=== PATIENT | male | born 1965 | race Caucasian/White ===

== ENCOUNTER 2020-10-19 02:33 | Emergency (ER) | payer BC, MEDICAID ==
[~2020-10-19] VITALS: Ht 170.2 cm; Wt 88.0 kg
[2020-10-19 03:23] VITALS: BP_SYST 113
[2020-10-19] MEDS ORDERED: COLC0.6C3 PO (03:30)
[2020-10-19] MEDS ORDERED: GLU500 PO (03:31)
[2020-10-19] MEDS ORDERED: VALS320T2 PO (03:31)
[2020-10-19] MEDS ORDERED: FENO160 PO (03:32)
[2020-10-19] MEDS ORDERED: NEU300 PO ×2 (03:32→03:33)
[2020-10-19] MEDS ORDERED: HYDR25TA4 PO (03:33)
[2020-10-19 04:37] LABS: BASOPHILS % (AUTO) 0.4 % (0.0-2.0); EOSINOPHILS # (AUTO) 0.3 K/uL (0.0-0.4); EOSINOPHILS % (AUTO) 2.4 % (0.0-4.0); HEMOGLOBIN 10.1 g/dL (14.0-18.0); LYMPHOCYTES # (AUTO) 1.8 K/uL (1.0-5.5); LYMPHOCYTES % (AUTO) 16.9 % (20.5-51.5); MEAN CORPUSCULAR HEMOGLOBIN 33 pg (27-31); MEAN CORPUSCULAR HGB CONC 34 % (32-36); MEAN CORPUSCULAR VOLUME 97 fL (79.0-98.0); NEUTROPHILS # (AUTO) 7.6 K/uL (1.8-7.7); NEUTROPHILS % (AUTO) 71.3 % (40.0-70.0); PLATELET COUNT (AUTO) 237 K/uL (130-430); RED BLOOD CELL COUNT(AUTO) 3.09 MIL/uL (4.2-6.2); RED CELL DISTRIBUTION WIDTH 12.4 % (9.0-15.0); WHITE BLOOD COUNT (AUTO) 10.7 K/uL (4.8-10.8)
[2020-10-19 04:39] LABS: CALCIUM 8.6 mg/dL (8.4-11.0); CREATININE 1.72 mg/dL (0.55-1.30); POTASSIUM 3.2 mmol/L (3.5-5.1)
--- NOTE | 2020-10-19 04:39 | NUR ---
Pt ambulatory to bed 1 for evaluation
[2020-10-19 04:44] LABS: ALBUMIN 3.7 g/dL (3.4-4.8); TOTAL BILIRUBIN 0.6 mg/dL (0.0-1.0)
--- NOTE | 2020-10-19 04:45 | NUR ---
Received patient to ER w/ c/o abd pain associated w/ nausea. patient states last BM x3 days and feels his abd is distended. Introduced self to patient, positioned for comfort and safety w/ bed to low position sr up, continue to monitor. Patient resting quietly. No acute distress noted. Vital signs within normal range.
[2020-10-19] MEDS: NACL 0.9% 1,000 ML IV ONE ×2 (05:03→07:15)
[2020-10-19] MEDS: MORPHINE 2 MG/ML INJ. SYRINGE IVP ONE (07:42)
--- NOTE | 2020-10-19 07:43 | NUR ---
Patient medicated as ordered. Will observe for any adverse reaction. Bed to low position sr up, continue to monitor. Patient resting quietly. No acute distress noted. Vital signs within normal range.
[2020-10-19 09:13] VITALS: BP_SYST 139
--- NOTE | 2020-10-19 09:14 | NUR ---
Patient given written and verbal discharge instructions and verbalizes understanding. ER MD discussed with patient the results and treatment provided. Patient in stable condition. ID arm band removed. IV catheter removed intact and dressing applied, no active bleeding. No Rx given. Patient educated on pain management and to follow up with PMD. Pain Scale 2/10. Opportunity for questions provided and answered. Medication side effect fact sheet provided.
[2020-10-19 15:12] LABS: BILIRUBIN,URINE 1+ (NEGATIVE); BLOOD, URINE NEGATIVE (NEGATIVE); CLARITY/URINE CLEAR (CLEAR); COLOR,URINE YELLOW (YELLOW); GLUCOSE,URINE NEGATIVE (NEGATIVE); KETONES,URINE NEGATIVE (NEGATIVE); LEUKOCYTE ESTERASE ,URINE NEGATIVE (NEGATIVE); NITRITE, URINE NEGATIVE (NEGATIVE); PROTEIN URINE NEGATIVE (NEGATIVE); UROBILINOGEN,URINE 0.2 (0.2-1.0)
== END 2020-10-19 09:13 | disposition home or self-care (01) ==
LOC: SED 02:33
DX: R07.89 Other chest pain (principal); R10.9 Unspecified abdominal pain; I10 Essential (primary) hypertension; E11.9 Type 2 diabetes mellitus without complications; F10.10 Alcohol abuse, uncomplicated; Z79.899 Other long term (current) drug therapy
CPT/HCPCS: 36415; 71045; 74176; 76376; 80053; 81003; 82150; 83690; 84484; 85025; 93005; 96361; 96374; 99285; J2270; J7030